=== PATIENT | female | born 1940 | race Caucasian/White ===

== ENCOUNTER → 2017-04-28 | Outpatient (CLI) | payer MEDICARE ==
[~2017-04-28] MED LIST: ALBU1AER INH; ARIM1TAB PO; ATOR10 PO; BIOT10004 PO; CIPR750T10 PO; CO Q100C9 PO; FLAG500T PO; IPRAAER IN; LANSO15 PO; LORA0.5T PO; MECL25CH PO; ONDA4; STOOTAB3 PO; TRAM50 PO; VENTAER INH; VITA20002 PO; ZOFR4TAB3 SL
--- NOTE | 2017-05-03 11:15 | RSPPFT ---
DATE OF PROCEDURE: 04/29/17 COMMENTS: Spirometry demonstrates an FEV1 of 1.9 at 99% of predicted, FVC of 2. At 106%, FEF 25-75 is 72%. Post-bronchodilator study shows a minimal change in the FEF 25-75. Lung volumes appear unremarkable. Diffusion capacity is normal. Flow volume loops appear unremarkable. IMPRESSION: 1. Early small airways obstruction. 2. Mild response to use of bronchodilator indicating reversibility. 3. Normal diffusion capacity.
== END ==
LOC: PHRSP 09:18
DX: R05 Cough (principal); J40 Bronchitis, not specified as acute or chronic; R06.00 Dyspnea, unspecified
CPT/HCPCS: 94060; 94726; 94729